=== PATIENT | male | born 1970 | race Caucasian/White ===

== ENCOUNTER 2020-05-25 21:16 | Emergency (ER) | payer SELFPAY ==
--- NOTE | ~2020-05-25 | XR_ITS ---
EXAMINATION: XR hand RT min 3V INDICATION: Right hand pain, initial encounter TECHNIQUE: Three views of the right hand are obtained. COMPARISON: None available FINDINGS: There is an acute, traumatic, comminuted fracture in the distal shaft of the fourth metacar pal. Soft tissue swelling surrounds the fracture. The joint spaces are maintained. No additional acut e osseous abnormality is identified. IMPRESSION: 1. Comminuted fracture in the distal shaft of the fourth metacarpal with surrounding soft tissue swel ling. Reviewed, dictated and finalized at location A. 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 Comminuted fracture in the distal shaft of the fourth metacarpal with surrou nding soft tissue swelling.
[2020-05-25 21:18] VITALS: BP 182/122; PULSE 92; RESP 18; TEMP 36.6; O2SAT 97
--- NOTE | 2020-05-25 22:04 | ED.UPPEXIN ---
HPI - Extremity Injury (Upper) General Chief Complaint: Extremity Injury, Upper Stated Complaint: right hand injury Time Seen by Provider: 05/25/20 21:34 Source: patient Mode of arrival: ambulatory Limitations: no limitations History of Present Illness HPI narrative: Patient is a 49-year-old male who presents complaining of pain to right hand. He reports smashing hand between a washing machine and [employer] truck this a.m. Patient has swelling and ecchymosis to the right hand. Able to move all fingers, full range of motion. Denies numbness or tingling. Patient denies other injuries. He denies taking [id number] medications for pain prior to arrival. Related Data Allergies Allergy/AdvReac Type Severity Reaction Status Date / Time No Known Allergies Allergy Verified 05/25/20 21:21 Review of Systems Review of Systems: Narrative: CONSTITUTIONAL: Denies fever, chills, or sweats. EYES: Denies visual changes, redness, or discharge. ENT: Denies rhinorrhea, congestion, sore throat, or otalgia. CARDIOVASCULAR: Denies chest pain, palpitations, or edema. RESPIRATORY: Denies cough or dyspnea. GASTROINTESTINAL: Denies abdominal pain, nausea, vomiting, or diarrhea. GENITOURINARY: Denies dysuria or hematuria. SKIN: Denies rash or itching. MUSCULOSKELETAL: Right hand pain NEUROLOGIC: Denies headache, numbness, dizziness, or weakness. PSYCHIATRIC: Denies anxiety or depression. [facility] Past Medical History Medical History Fractured hand HTN (hypertension) Surgical History Surgical History No significant past surgical history Family History Family History Other No significant family history Social History Social History (Updated 05/25/20 @ 23:08 by DONNA Perea) Smoking status: Current some day smoker Tobacco type: cigarettes Alcohol intake: current Alcohol use details: Occasional Substance use: never Living arrangements: with family Gender identity (if verbalized by the patient): Male Comments At the time of signature, I have reviewed and agree with nursing past medical, surgical, social, and family history unless otherwise noted. Please see nursing chart for further information. There is no relevant family history pertinent to the presenting complaint. Exam Narrative: Exam Narrative: GENERAL: Well-appearing, well-nourished, and in no acute distress. HEAD: Normocephalic, atraumatic. EYES: No redness or drainage. ENT: Mucous membranes pink and moist. CHEST: No respiratory distress. HEART: Regular rate and rhythm. MUSCULOSKELETAL: No bony tenderness. EXTREMITIES: Edema and ecchymosis to right dorsal hand, full range of motion, distal sensation intact, good capillary refill. Tenderness with palpation over her right third, fourth and fifth metacarpal. SKIN: Warm, dry, no rash. NEURO: No focal deficits. Alert and oriented x3. Gait steady. PSYCH: Normal affect. No signs of depression or anxiety. Course Vital Signs Vital signs: Vital Signs Temperature 36.6 C 05/25/20 21:18 Pulse Rate 92 05/25/20 21:18 Respiratory Rate 18 05/25/20 21:18 Blood Pressure 182/122 H 05/25/20 21:18 Pulse Oximetry 97 05/25/20 21:18 Temperature 36.6 C 05/25/20 21:18 Pulse Rate 92 05/25/20 21:18 Respiratory Rate 18 05/25/20 21:18 Blood Pressure 182/122 H 05/25/20 21:18 Pulse Oximetry 97 05/25/20 21:18 Procedures Orthopedic Splinting/Casting Injury #1: Splinting/Casting Date: 05/25/20 Side: right Upper Extremity Injury Location: hand Splint: customized in ED OCL: short arm Pre-Procedure Neuro Vascular Exam: normal Post-Procedure Neuro Vascular Exam: normal MDM - Extremity Injury (Upper) MDM Narrative Medical decision making narrative: Patient has comminuted fra
[2020-05-25] MEDS: HYDROcodone/acetaminophen (*CRX) 5-325 MG TABLET 1 TAB PO (22:23)
[2020-05-25 23:15] VITALS: BP 164/108; PULSE 82; RESP 20; O2SAT 95
== END 2020-05-25 23:17 | disposition home or self-care (01) ==
PROVIDERS: Emergency Provider Nurse Practitioner
DX: S62.324A Displaced fracture of shaft of fourth metacarpal bone, right hand, initial encounter for closed fracture (principal); W23.1XXA Caught, crushed, jammed, or pinched between stationary objects, initial encounter
CPT/HCPCS: 29125; 73130; 99284; A9270

== ENCOUNTER 2020-07-07 10:21 | Emergency (ER) | payer SELFPAY ==
--- NOTE | ~2020-07-07 | XR_ITS ---
EXAMINATION: XR ribs RT 2V DATE: 07/07/2020 10:41 INDICATION: Right chest pain. TECHNIQUE: 3 views of the right ribs were obtained. COMPARISON: None. FINDINGS: There is no right-sided pneumonia, pleural effusion, or pneumothorax. The heart size is nor mal. IMPRESSION: 1. There is no rib fracture. Reviewed, dictated and finalized at location A. LINE REPAIRER
--- NOTE | ~2020-07-07 | CT_ITS ---
EXAMINATION: CT chest abdomen pelvis w con DATE: 07/07/2020 11:52 INDICATION: Right chest pain. Right abdominal pain. Fall down steps. TECHNIQUE: Computed tomography (CT) of the chest, abdomen, and pelvis was performed with 100 mL Omnip aque 350 intravenous contrast. Automated exposure control and iterative reconstruction technique were employed. The dose-length product was 1936.39 mGy-cm. COMPARISON: None FINDINGS: CHEST CT: There is a 3 mm nodule in right lung middle lobe, likely benign. There is minimal atelectasis bilater ally. There is a 4 mm nodule in left lung lower lobe, likely benign. There is a 3 mm nodule in left u pper lobe, likely benign. No pleural effusion. The heart size is normal. There are calcifications of the aortic valve. No pericardial effusion. There is mild bilateral gynecomastia. There are fracture d eformities of anterior right fifth and sixth ribs, likely chronic. There is severe thoracic spondylos is. ABDOMEN/PELVIS CT: The liver, gallbladder, spleen, pancreas, adrenal glands, and right kidney are normal. There is a 2 m m stone in left kidney. There are no dilated loops of bowel. The appendix is normal. There are no pat hologically enlarged lymph nodes. There is no free intraperitoneal fluid. There is moderate lumbar sp ondylosis. IMPRESSION: 1. No acute posttraumatic findings. Reviewed, dictated and finalized at location A. E TELEVISION LINE TECHNICIAN
[2020-07-07 10:25] VITALS: BP 214/107; PULSE 84; RESP 18; TEMP 36.3; O2SAT 100
--- NOTE | 2020-07-07 10:39 | PC.NURSE ---
Pt to XRAY via w/c at this time.
[2020-07-07] MEDS: MORPHINE SULFATE (*CRX) 4 MG/ML INJ IV PUSH (11:18)
[2020-07-07] MEDS: SODIUM CHLORIDE 0.9% IV 1,000 ML 999 ML IV CONT (11:20)
[2020-07-07 11:25] VITALS: BP 153/101; PULSE 83; RESP 20; TEMP 36.8; O2SAT 100
[2020-07-07 11:39] LABS: Basophils Absolute Auto 0.1 K/mm3 (0.0-0.1); Basophils Percent Auto 0.5 % (0.2-1.2); Eosinophils Absolute Auto 0.2 K/mm3 (0-0.3); Eosinophils Percent Auto 1.5 % (0-4.4); Hematocrit 43.8 % (42.0-52.0); Hemoglobin 14.9 g/dL (14.0-18.0); Immature Granulocyte Absolute 0.03 K/mm3 (0.00-0.031); Immature Granulocyte Percent A 0.3 % (0-0.5); Lymphocytes Absolute Auto 1.37 K/mm3 (0.9-3.2); Lymphocytes Percent Auto 13.9 % (18.3-44.2); Mean Corpuscular Hemoglobin 29.8 pg (26-34); Mean Corpuscular Volume 87.6 fl (80-100); Mean Platelet Volume 9.1 fl (7.4-10.4); Monocytes Absolute Auto 0.6 K/mm3 (0.1-0.6); Monocytes Percent Auto 6.4 % (2.6-8.5); Neutrophils Absolute Auto 7.6 K/mm3 (1.3-6.7); Neutrophils Percent Auto 77.4 % (45.5-73.1); Platelet Count Result 216 k/mm3 (150-375); Red Cell Distribution Width 13.6 % (11.5-14.5); White Blood Count 9.9 K/mm3 (4.5-10.0)
--- NOTE | 2020-07-07 11:46 | ED.GENADULT ---
HPI - General Adult General Chief complaint: Fall Stated complaint: fall yesterday- rib pain Time Seen by Provider: 07/07/20 10:41 Source: patient Mode of arrival: ambulatory Limitations: no limitations History of Present Illness HPI narrative: Patient is a 49-year-old male who presents to emergency department for evaluation of right-sided abdominal pain and rib pain noting that he fell yesterday going down the stairs fell down 8 stairs striking the abdomen and ribs where he has moderate aching pain worse with any activity or movement attempted Tylenol with no improvement. Patient denies any fever chills nausea vomiting recent illness syncope loss of consciousness. Patient notes that he did strike his head and sustained an abrasion to the right brow but denies headache lightheadedness dizziness. Patient on arrival appears uncomfortable with activity. Patient notes he has no pertinent past medical history Related Data Allergies Allergy/AdvReac Type Severity Reaction Status Date / Time No Known Allergies Allergy Verified 07/07/20 11:29 Review of Systems Review of Systems: All systems reviewed & are unremarkable except as noted in HPI and below PMFSH Past Medical History Medical History Fractured hand HTN (hypertension) Surgical History Surgical History No significant past surgical history Family History Family History Other No significant family history Social History Social History Smoking status: Current some day smoker Tobacco type: cigarettes Alcohol intake: current Substance use: never Gender identity (if verbalized by the patient): Male Exam Narrative: Exam Narrative: GENERAL: Well-appearing, well-nourished, and in no acute distress. HEAD: Normocephalic, atraumatic. EYES: PERRLA and EOMI. ENT: Nares clear, no rhinorrhea or epistaxis. Mucous membranes moist. NECK: Supple. No adenopathy or masses. CHEST: Clear to auscultation. No respiratory distress. No wheezes rales or rhonchi HEART: Regular rate and rhythm. No murmur heard. Normal peripheral pulses. ABDOMEN: Soft, tenderness of the right upper abdomen with voluntary guarding,distended EXTREMITIES: Normal range of motion. No edema. No midline cervical thoracic or lumbar tenderness SKIN: Warm, dry, no rash. NEURO: No focal deficits. Alert and oriented x3. Cranial nerves II through XII grossly intact PSYCH: Normal mood and affect. Course Course Emergency Course: Patient evaluated in the emergency department for injuries related falling down 8 stairs. Patient resting comfortably in the room at times has worsening pain with activity and movement will be given incentive spirometer likely soft tissue injuries of the abdomen and chest wall to explain his discomfort patient will also be given primary care follow-up and given reasons to return. ABCs and vital signs intact and stable Vital Signs Vital signs: Vital Signs Temperature 97.4 F L 07/07/20 10:25 Pulse Rate 84 07/07/20 10:25 Respiratory Rate 18 07/07/20 10:25 Blood Pressure 214/107 H 07/07/20 10:25 Pulse Oximetry 100 07/07/20 10:25 Temperature 98.3 F 07/07/20 11:25 Pulse Rate 83 07/07/20 11:25 Respiratory Rate 20 07/07/20 11:25 Blood Pressure 153/101 H 07/07/20 11:25 Pulse Oximetry 100 07/07/20 11:25 Medical Decision Making MDM Narrative Medical decision making narrative: Patient with likely musculoskeletal pain given his trauma and injury no high risk imaging or blood findings patient will be discharged with follow-up with primary care given reasons to return Vital Signs Vital Signs: Vital Signs Temperature 97.4 F L 07/07/20 10:25 Pulse Rate 84 07/07/20 10:25 Respiratory Rate 18 07/07/20 10:25 Blood Pressure 214/
[2020-07-07 11:47] LABS: INR 0.9; Prothrombin Time 12.5 Seconds (11.1-14.7)
[2020-07-07 11:48] LABS: Partial Thromboplastin Time 24.8 SECONDS (22.3-36.8)
[2020-07-07 11:54] LABS: Alanine Aminotransferase 40 U/L (4-50); Albumin Level 4.3 g/dL (3.5-5.1); Alkaline Phosphatase 84 U/L (38-126); Anion Gap 4 mmol/L (8-16); Aspartate Amino Transferase 45 U/L (17-59); Bilirubin,Total 0.5 mg/dL (0.2-1.3); Blood Urea Nitrogen 12 mg/dL (9-20); Calcium 9.1 mg/dL (8.4-10.2); Carbon Dioxide 32 mmol/L (22-30); Chloride 103 mmol/L (98-107); Estimated CRCL calculation 138 ml/min; Estimated Glomerular Filt Rate > 60; Glucose 105 mg/dL (75-110); Potassium 4.2 mmol/L (3.4-5.0); Sodium 139 mmol/L (137-145)
[2020-07-07 12:21] LABS: Add Urine Microscopic? NO; Appearance Urine Clear (Clear); Bilirubin Urine Negative (Negative); Blood Urine Negative (Negative); Color Urine Straw (Yellow); Glucose Urine UA Negative (Negative); Ketones Urine Negative (Negative); Leukocyte Esterase Ur Negative LEU/UL (Negative); Nitrate Urine Negative (Negative); Protein Urine Negative (Negative); Specific Grav Ur 1.013 (1.001-1.035); Urobilinogen Urine Negative mg/dL (<2.0)
[2020-07-07 13:22] VITALS: BP 169/100; PULSE 84; RESP 18; TEMP 36.6; O2SAT 99
[2020-07-07 15:21] LABS: Estimated CRCL calculation 138 ml/min; Estimated Glomerular Filt Rate > 60
== END 2020-07-07 13:26 | disposition home or self-care (01) ==
PROVIDERS: Emergency Medicine Emergency Medical Services; Emergency Provider Emergency Medicine
DX: S39.91XA Unspecified injury of abdomen, initial encounter (principal); S29.9XXA Unspecified injury of thorax, initial encounter; I10 Essential (primary) hypertension; F17.210 Nicotine dependence, cigarettes, uncomplicated; W10.9XXA Fall (on) (from) unspecified stairs and steps, initial encounter
CPT/HCPCS: 36415; 71100; 71260; 74177; 80053; 81003; 85025; 85610; 85730; 96361; 96374; 99284; J2270; J7030; Q9967

== ENCOUNTER 2020-09-09 19:09 | Emergency (ER) | payer SELFPAY ==
--- NOTE | ~2020-09-09 | XR_ITS ---
EXAMINATION: XR knee LT 3V DATE: 09/09/2020 19:51 INDICATION: Left knee pain. TECHNIQUE: 3 views of left knee were obtained. COMPARISON: None. FINDINGS: Bone alignment is normal. No fracture. There is mild tricompartmental osteoarthritis. There is a moderate-sized knee joint effusion. There is a 4 mm loose body in the intercondylar notch. IMPRESSION: 1. Mild left knee osteoarthritis. 2. Moderate-sized left knee joint effusion with loose body. Reviewed, dictated and finalized at location A.
[2020-09-09 19:22] VITALS: BP 150/112; PULSE 98; RESP 18; TEMP 36.3; O2SAT 96
[2020-09-09] MEDS: HYDROcodone/acetaminophen (*CRX) 5-325 MG TABLET 1 TAB PO (19:54)
[2020-09-09] MEDS: IBUPROFEN 600 MG TABLET PO (19:56)
--- NOTE | 2020-09-09 20:11 | ED.GENADULT ---
HPI - General Adult General Chief complaint: Extremity Injury, Lower Stated complaint: L knee Pain Time Seen by Provider: 09/09/20 19:19 Source: patient and RN notes reviewed Mode of arrival: ambulatory Limitations: no limitations History of Present Illness HPI narrative: Patient is a 50-year-old male who presents to emergency department for evaluation of left knee pain and swelling that began yesterday after slipping in the mud with swelling and tenderness since patient has moderate aching pain worse with weightbearing and activity. Patient denies other injuries or complaints has taken ibuprofen with minimal improvement. Patient has not been seen for this complaint Related Data Allergies Allergy/AdvReac Type Severity Reaction Status Date / Time No Known Allergies Allergy Verified 09/09/20 19:25 Review of Systems Review of Systems: All systems reviewed & are unremarkable except as noted in HPI and below PMFSH Past Medical History Medical History Fractured hand HTN (hypertension) Surgical History Surgical History No significant past surgical history Family History Family History Other No significant family history Social History Social History Smoking status: Current some day smoker Tobacco type: cigarettes Alcohol intake: current Substance use: never Gender identity (if verbalized by the patient): Male Sexual Orientation (if Verbalized by the Patient): Straight or Heterosexual Exam Narrative: Exam Narrative: GENERAL: Well-appearing, well-nourished, and in no acute distress. HEAD: Normocephalic, atraumatic. EYES: PERRLA and EOMI. ENT: Nares clear, no rhinorrhea or epistaxis. Mucous membranes moist. CHEST: Clear to auscultation. No respiratory distress. No wheezes rales or rhonchi HEART: Regular rate and rhythm. No murmur heard. EXTREMITIES: Patient with swollen left knee with tenderness throughout the joint SKIN: Warm, dry, no rash. NEURO: No focal deficits. Alert and oriented x3. Neurovascularly intact. Capillary refill less than 2 seconds PSYCH: Normal mood and affect. Course Course Emergency Course: Patient with swollen left knee joint likely internal derangement was placed in Lee wrap knee immobilizer and crutches given orthopedic and primary care follow-up. Patient felt to be safe for discharge home for outpatient reevaluation made aware of case findings treatment plan diagnosis Vital Signs Vital signs: Vital Signs Temperature 97.3 F L 09/09/20 19:22 Pulse Rate 98 09/09/20 19:22 Respiratory Rate 18 09/09/20 19:22 Blood Pressure 150/112 H 09/09/20 19:22 Pulse Oximetry 96 09/09/20 19:22 Temperature 97.3 F L 09/09/20 19:22 Pulse Rate 98 09/09/20 19:22 Respiratory Rate 18 09/09/20 19:22 Blood Pressure 150/112 H 09/09/20 19:22 Pulse Oximetry 96 09/09/20 19:22 Medical Decision Making MDM Narrative Medical decision making narrative: Patients injury or pain is consistent with musculoskeletal etiology. No signs of neurological or vascular compromise on exam. Compartments and tisues are soft without signs of compartment syndrome. Pain is felt appropriate for further evaluation on an outpatient basis. Vital Signs Vital Signs: Vital Signs Temperature 97.3 F L 09/09/20 19:22 Pulse Rate 98 09/09/20 19:22 Respiratory Rate 18 09/09/20 19:22 Blood Pressure 150/112 H 09/09/20 19:22 Pulse Oximetry 96 09/09/20 19:22 Temperature 97.3 F L 09/09/20 19:22 Pulse Rate 98 09/09/20 19:22 Respiratory Rate 18 09/09/20 19:22 Blood Pressure 150/112 H 09/09/20 19:22 Pulse Oximetry 96 09/09/20 19:22 Imaging Data Radiologist's impression: ITS Impressions Knee X-Ray 09/09/20 19:55 IMPRESSION: 1. Mild left knee
[2020-09-09 21:01] VITALS: BP 150/70; PULSE 70; RESP 16; O2SAT 99
== END 2020-09-09 21:03 | disposition home or self-care (01) ==
PROVIDERS: Emergency Provider Family Medicine
DX: S83.207A Unspecified tear of unspecified meniscus, current injury, left knee, initial encounter (principal); I10 Essential (primary) hypertension; F17.210 Nicotine dependence, cigarettes, uncomplicated; M17.12 Unilateral primary osteoarthritis, left knee; W18.40XA Slipping, tripping and stumbling without falling, unspecified, initial encounter
CPT/HCPCS: 73562; 99283; A9270

== ENCOUNTER 2020-10-24 20:56 | Emergency (ER) | payer SELFPAY ==
[2020-10-24 21:12] VITALS: BP 158/101; PULSE 100; RESP 20; TEMP 37.4; O2SAT 97
--- NOTE | 2020-10-24 21:30 | PC.NURSE ---
call pt for xray, unable to find the pt.
--- NOTE | 2020-10-24 22:24 | PC.NURSE ---
call pt to go to rm, pt not to be found. will remove from triage list
== END 2020-10-24 22:24 | disposition left against medical advice (07) ==
LOC: ANHED 22:32
DX: M25.562 Pain in left knee (principal)
CPT/HCPCS: 99199

== ENCOUNTER 2020-11-04 00:30 | Emergency (ER) | payer SELFPAY ==
[2020-11-04 00:37] VITALS: BP 207/135; PULSE 120; RESP 24; TEMP 37.3; O2SAT 96
[2020-11-04 01:00] VITALS: BP 176/107; PULSE 118; RESP 24; O2SAT 96
--- NOTE | 2020-11-04 01:04 | ED.LOWEXIN ---
HPI - Extremity Injury (Lower) General Chief Complaint: Extremity Injury, Lower Stated Complaint: left knee pain Time Seen by Provider: 11/04/20 00:38 Source: patient Mode of arrival: ambulatory Limitations: no limitations History of Present Illness HPI Narrative: Patient is a 50-year-old male complaining of left knee pain, 9 out of 10, dull, aching, worse with movement and walking that started months ago but worse the past 2 weeks after twisting it. Patient states that she was seen here 2 months ago for the same complaint. Patient states that he does not have insurance so he was unable to follow-up with family doctor or an orthopedic doctor for his knee. Patient also states that he has not seen a doctor in a while, does not know if he has high blood pressure or not. Patient does not take any medication for his blood pressure. Patient denies any calf pain, knee redness, chest pain, shortness of breath, fever or chills. Related Data Allergies Allergy/AdvReac Type Severity Reaction Status Date / Time No Known Allergies Allergy Verified 11/04/20 01:02 Review of Systems Review of Systems: All systems reviewed & are unremarkable except as noted in HPI and below Constitutional: Constitutional: Denies body ache(s), Denies chills, Denies excessive sweating, Denies fatigue, Denies fever(s), Denies headache(s), Denies lethargy, Denies malaise, Denies weakness and Denies weight loss Eyes: Eyes: Denies blurry vision, Denies change in vision and Denies loss of vision ENT: Denies dizziness, Denies ear discharge, Denies headache(s), Denies lip swelling, Denies epistaxis, Denies nasal congestion, Denies neck pain, Denies throat swelling and Denies tongue swelling Cardiovascular: Cardiovascular: Denies chest pain, Denies chest pain at rest, Denies chest pain with activity, Denies diaphoresis, Denies rapid heart rate, Denies edema, Denies irregular heart rhythm, Denies lightheadedness, Denies palpitations, Denies dyspnea and Denies dyspnea on exertion Respiratory: Respiratory: Denies chest congestion, Denies cough, Denies hemoptysis, Denies dyspnea and Denies dyspnea on exertion Gastrointestinal: Gastrointestinal: Denies abdominal pain, Denies melena, Denies hematochezia, Denies diarrhea, Denies nausea, Denies vomiting and Denies hematemesis Musculoskeletal: Musculoskeletal: Denies abnormal gait, Denies deformity, Denies neck pain and Denies numbness Neurologic: Denies Abnormal speech present, Denies abnormal gait, Denies confusion, Denies dizziness, Denies headache(s), Denies focal weakness, Denies loss of vision, Denies numbness, Denies Other visual disturbances, Denies Sensory deficit (Neuro) and Denies weakness Psychiatric: Psychiatric: Denies confusion, Denies depression, Denies auditory hallucinations, Denies homicidal ideation and Denies suicidal ideation Endocrine: Endocrine: Denies cold intolerance, Denies excessive sweating, Denies fatigue, Denies heat intolerance and Denies palpitations Hematologic/Lymphatic: Hematologic/Lymphatic: Denies easy bleeding and Denies easy bruising Allergic/Immunologic: Allergic/Immunologic: Denies lip swelling, Denies throat swelling and Denies tongue swelling PMFSH Past Medical History Medical History Fractured hand HTN (hypertension) Surgical History Surgical History No significant past surgical history Family History Family History Other No significant family history Social History Social History Smoking status: Current some day smoker Tobacco type: cigarettes Alcohol intake: current Substance use: never Gender identity (if verbalized by the patient): Male Exam Const: General: cooperative, comfortable, no acute distress, well developed, alert and awake; No
[2020-11-04] MEDS: HYDROcodone/acetaminophen (*CRX) 5-325 MG TABLET 1 TAB PO ×2 (01:19→01:46)
[2020-11-04] MEDS: cloNIDine HCL 0.2 MG TABLET PO (01:19)
[2020-11-04] MEDS: KETOROLAC 30 MG/ML VIAL (*BKC) IM (01:20)
[2020-11-04] MEDS: CYCLOBENZAPRINE HCL 10 MG TABLET PO (01:20)
[2020-11-04 02:06] VITALS: BP 164/117; PULSE 104; RESP 22; O2SAT 97
== END 2020-11-04 02:19 | disposition home or self-care (01) ==
LOC: ANHED 01:23
PROVIDERS: Emergency Provider Emergency Medicine
DX: M25.562 Pain in left knee (principal); I10 Essential (primary) hypertension; F17.290 Nicotine dependence, other tobacco product, uncomplicated
CPT/HCPCS: 99283; A9270; J1885

== ENCOUNTER 2021-05-29 14:20 | Emergency (ER) | payer SELFPAY ==
--- NOTE | ~2021-05-29 | XR_ITS ---
EXAMINATION: XR hand LT min 3V INDICATION: Left hand pain and laceration of the third finger. TECHNIQUE: Three views of the left hand are obtained. COMPARISON: None available FINDINGS: Bone alignment is normal. There is no fracture. There is soft tissue swelling of the third finger. The joint spaces are unremarkable. No radiopaque foreign body is identified. IMPRESSION: 1. No acute osseous abnormality. Reviewed, dictated and finalized at location F. ER GILL NET
[2021-05-29 14:23] VITALS: BP 181/123; PULSE 114; RESP 20; TEMP 36.7; O2SAT 95
[2021-05-29] MEDS: oxyCODONE/ACETAMINOPHEN (*CRX) 5-325 MG TABLET 2 TABLET PO (16:15)
--- NOTE | 2021-05-29 16:24 | ED.GENADULT ---
HPI - General Adult General Chief complaint: Extremity Injury, Upper Stated complaint: hand injury Time Seen by Provider: 05/29/21 14:33 Source: patient Mode of arrival: ambulatory Limitations: no limitations History of Present Illness HPI narrative: Patient presents for evaluation of injury to the left hand. 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 Reports a wound to the third digit of the left hand. He has throbbing pain in the third digit of the left hand, severe, worse with movement. Reports decreased range of motion of the affected digit secondary to pain. He is not diabetic. Last tetanus was about 3 years ago. Related Data Allergies Allergy/AdvReac Type Severity Reaction Status Date / Time No Known Allergies Allergy Verified 05/29/21 14:35 Review of Systems Review of Systems: CONSTITUTIONAL: Denies fever, chills, or sweats. EYES: Denies visual changes, redness, or discharge. ENT: Denies rhinorrhea, congestion, sore throat, or otalgia. CARDIOVASCULAR: Denies chest pain, palpitations, or edema. RESPIRATORY: Denies cough or dyspnea. GASTROINTESTINAL: Denies abdominal pain, nausea, vomiting, or diarrhea. GENITOURINARY: Denies dysuria or hematuria. SKIN: Reports laceration to the third digit of the left hand MUSCULOSKELETAL: Reports pain in the third digit of the left hand. Denies back pain NEUROLOGIC: Denies headache, numbness, dizziness, or weakness. PSYCHIATRIC: Denies anxiety or depression. [facility] Past Medical History Medical History Fractured hand HTN (hypertension) Surgical History Surgical History H/O umbilical hernia repair History of carpal tunnel surgery No significant past surgical history Family History Family History Mother Lung cancer Father Carcinoma of colon Other No significant family history Social History Social History Tobacco type: smokeless tobacco Alcohol intake: never Alcohol use details: Occasional Substance use: never Living arrangements: with family Additional occupation/education comments: [employer] Gender identity (if verbalized by the patient): Male Sexual Orientation (if Verbalized by the Patient): Straight or Heterosexual Spiritual care concerns: No Exam Narrative: GENERAL: Well-appearing, well-nourished, and in no acute distress. HEAD: Normocephalic, atraumatic. EYES: PERRLA and EOMI. ENT: Nares clear, no rhinorrhea or epistaxis. Mucous membranes moist. Oropharynx without tonsillar hypertrophy exudate or other lesions. Bilateral TMs pearly christian nonbulging NECK: Supple. No adenopathy or masses. No carotid bruits or JVD CHEST: Clear to auscultation. No respiratory distress. No wheezes rales or rhonchi HEART: Regular rate and rhythm. No murmur heard. Normal peripheral pulses. ABDOMEN: Soft, nontender, nondistended, normal active bowel sounds. EXTREMITIES: Decreased range of motion of the MCP PIP and DIP joints of the third digit of the left hand. No edema. SKIN: Approximately 3 cm linear laceration to the lateral aspect of the proximal phalanx of the third digit of the left hand. Approximately 7 mm linear laceration adjacent to that NEURO: No focal deficits. Alert and oriented x3. PSYCH: Normal mood and affect. Course Course Emergency Course: This is a 50-year-old male who presented with complaints of laceration and injury to the third digit of the left hand after a transmission fell on him just prior to arrival. X-ray was negative for fracture. Hands were soiled on my initial evaluation were cleaned. Lacerations were closed. Patient tolerated well. Updated on tetanus. He did have decreased range of motion of the MCP, PIP and DIP joints of the third
[2021-05-29] MEDS: LIDOCAINE HCL 1% LOCAL INJ 20 ML VIAL 10 ML INFILTRATE (16:44)
--- NOTE | 2021-05-29 17:33 | PC.NURSE ---
Supplies at bedside for laceration repair.
[2021-05-29] MEDS: HYDROGEN PEROXIDE 3% SOLN(*SP) 473 ML BOTTLE (17:55)
[2021-05-29] MEDS: NEOMYCIN/POLYMYXIN/BACITRACIN OINTMENT 15 GM TUBE 1 APPLIC TOPICAL (18:50)
[2021-05-29 18:51] VITALS: BP 172/100; PULSE 105; RESP 16; O2SAT 98
== END 2021-05-29 18:52 | disposition home or self-care (01) ==
PROVIDERS: Emergency Provider Nurse Practitioner
DX: S61.213A Laceration without foreign body of left middle finger without damage to nail, initial encounter (principal); I10 Essential (primary) hypertension; F17.220 Nicotine dependence, chewing tobacco, uncomplicated; W20.8XXA Other cause of strike by thrown, projected or falling object, initial encounter
CPT/HCPCS: 12002; 73130; 99283; A9270

== ENCOUNTER 2021-06-12 19:07 | Emergency (ER) | payer SELFPAY ==
[2021-06-12 19:19] VITALS: BP 150/99; PULSE 87; RESP 20; TEMP 36.8; O2SAT 100
--- NOTE | 2021-06-12 20:45 | PC.NURSE ---
Called for pt x 2, waiting room searched. Pt will be d/c'd as LWBS
== END 2021-06-12 20:45 | disposition left against medical advice (07) ==
LOC: ANHED 06-13 04:16
DX: M25.512 Pain in left shoulder (principal)
CPT/HCPCS: 99199

== ENCOUNTER 2021-11-25 15:59 | Emergency (ER) | payer SELFPAY ==
--- NOTE | ~2021-11-25 | XR_ITS ---
XR foot LT min 3V DATE: 11/25/2021 16:46 INDICATION: Dropped wood on foot yesterday. Dorsal soft tissue swelling TECHNIQUE: 4 views COMPARISON: None FINDINGS: Mild osteoarthritis at the first metatarsophalangeal joint. No fracture or dislocation, periosteal reaction or bone destruction. IMPRESSION: No fracture or dislocation Reviewed, dictated and finalized at location B. IMPRESSION: No fracture or dislocation
[2021-11-25 16:03] VITALS: BP 165/126; PULSE 116; RESP 20; TEMP 36.3; O2SAT 97
--- NOTE | 2021-11-25 17:51 | ED.GENADULT ---
HPI - General Adult General Chief complaint: Extremity Injury, Lower Stated complaint: Left foot pain Time Seen by Provider: 11/25/21 16:35 Source: patient Mode of arrival: ambulatory Limitations: no limitations History of Present Illness HPI narrative: 51 years old, white male, presents with left foot pain after bag of wood landed on his foot yesterday afternoon. No other injuries. Related Data Allergies Allergy/AdvReac Type Severity Reaction Status Date / Time No Known Allergies Allergy Verified 06/12/21 19:23 Review of Systems Review of Systems: All systems reviewed & are unremarkable except as noted in HPI and below PMFSH Past Medical History Medical History Fractured hand HTN (hypertension) Surgical History Surgical History H/O umbilical hernia repair History of carpal tunnel surgery No significant past surgical history Family History Family History Mother Lung cancer Father Carcinoma of colon Other No significant family history Social History Social History Tobacco type: smokeless tobacco Alcohol intake: never Alcohol use details: Occasional Substance use: never 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 Musculoskeletal: Normal range of motion, nontender back, left foot showed diffuse swelling, no bruises, diffusely tender dorsally, no deformity Neurologic: Alert and oriented ?3, [employer] is normal as tested, no gross motor deficit Course Vital Signs Vital signs: Vital Signs Temperature 36.3 C L 11/25/21 16:03 Pulse Rate 116 H 11/25/21 16:03 Respiratory Rate 20 11/25/21 16:03 Blood Pressure 165/126 H 11/25/21 16:03 Pulse Oximetry 97 11/25/21 16:03 Oxygen Delivery Room Air 11/25/21 16:03 Temperature 36.3 C L 11/25/21 16:03 Pulse Rate 116 H 11/25/21 16:03 Respiratory Rate 20 07/22/22 16:03 Blood Pressure 165/126 H 11/25/21 16:03 Pulse Oximetry 97 11/25/21 16:03 Oxygen Delivery Room Air 11/25/21 16:03 Medical Decision Making Differential Diagnosis Differential Diagnosis: Contusion, foot fracture Vital Signs Vital Signs: Vital Signs Temperature 36.3 C L 11/25/21 16:03 Pulse Rate 116 H 11/25/21 16:03 Respiratory Rate 11/25/21 16:03 Blood Pressure 165/126 H 11/25/21 16:03 Pulse Oximetry 97 11/25/21 16:03 Oxygen Delivery Room Air 11/25/21 16:03 Temperature 36.3 C L 11/25/21 16:03 Pulse Rate 116 H 11/25/21 16:03 Respiratory Rate 11/25/21 16:03 Blood Pressure 165/126 H 11/25/21 16:03 Pulse Oximetry 97 11/25/21 16:03 Oxygen Delivery Room Air 11/25/21 16:03 Imaging Data Radiologist's impression: Impressions Foot X-Ray 11/25/21 16:48 IMPRESSION: No fracture or dislocation Critical Care Time Critical Care Time Critical Care Time: No Discharge Plan Discharge Clinical Impression: Contusion of foot, left Patient Disposition: Home, Self-Care Condition: Stable Instructions: Antibiotic Form, Foot Contusion (ED) Additional Instructions: Keep leg elevated, ice pack 20 minutes/h for the 24 hours after injury, keep leg elevated above the level of heart, take Tyl
[2021-11-25] MEDS: KETOROLAC (*BKC) 60 MG/2 ML VIAL IM (17:55)
== END 2021-11-25 18:02 | disposition home or self-care (01) ==
PROVIDERS: Emergency Provider Emergency Medicine
DX: S90.32XA Contusion of left foot, initial encounter (principal); I10 Essential (primary) hypertension; F17.220 Nicotine dependence, chewing tobacco, uncomplicated; W20.8XXA Other cause of strike by thrown, projected or falling object, initial encounter
CPT/HCPCS: 73630; 96372; 99283; J1885